=== PATIENT | female | born 1975 | race Caucasian/White ===

== ENCOUNTER → 2021-04-01 | Outpatient (CLI) | payer BC ==
[~2021-04-01] MED LIST: ZOFRAN ODT 4 MG4 MG PO
== END ==
LOC: EXRD 13:50
DX: E04.9 Nontoxic goiter, unspecified (principal)
CPT/HCPCS: 76536

== ENCOUNTER 2021-05-18 08:58 | Emergency (ER) | payer BC ==
[~2021-05-18] VITALS: Ht 167.6 cm; Wt 86.2 kg
== END 2021-05-18 12:44 | disposition home or self-care (01) ==
LOC: ER1 08:58
DX: U07.1 COVID-19 (principal); Z23 Encounter for immunization; F17.200 Nicotine dependence, unspecified, uncomplicated
CPT/HCPCS: 99283; M0243